=== PATIENT | female | born 1950 | race Caucasian/White ===

== ENCOUNTER 2018-02-05 19:45 | Emergency (ER) | payer OTHER, MEDICARE ==
[~2018-02-05] VITALS: Ht 157.5 cm; Wt 59.9 kg
[2018-02-05 19:47] VITALS: BP 142/87
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
--- NOTE | 2018-02-05 20:20 | NUR ---
CT PT OUT OF ROOM AMBULATORY TO RAD
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
[2018-02-05 21:00] VITALS: BP 137/86
[2018-02-05 21:12] VITALS: BP 137/86
== END 2018-02-05 21:06 | disposition home or self-care (01) ==
LOC: ER 19:45 → EDBD 19:45 → ER 21:06
DX: M54.2 Cervicalgia (principal); Z90.49 Acquired absence of other specified parts of digestive tract; V49.9XXA Car occupant (driver) (passenger) injured in unspecified traffic accident, initial encounter; Y93.89 Activity, other specified; Y92.488 Other paved roadways as the place of occurrence of the external cause; Y99.8 Other external cause status; E11.9 Type 2 diabetes mellitus without complications; I10 Essential (primary) hypertension; Z90.710 Acquired absence of both cervix and uterus; Z88.5 Allergy status to narcotic agent
CPT/HCPCS: 70490; 99284